=== PATIENT | female | born 1950 | race Caucasian/White ===

== ENCOUNTER 2018-11-15 23:11 | Inpatient (IN) | payer MEDICARE, BC ==
[~2018-11-15] VITALS: Ht 162.6 cm; Wt 77.1 kg
--- NOTE | 2018-11-15 23:29 | NUR ---
PATIENT AMBULATORY TO ROOM 9. UNDRESSED INTO A GOWN. PATIENT INSTRUCTED TO REFRAIN FROM USING HER HEAVY ROBE OR QUILT TO COVER UP WITH DUE TO FEVER. VERBALIZES UNDERSTANDING.
[2018-11-15] MEDS ORDERED: PROAIR HFA108 MCG/AC IN (23:34)
[2018-11-15] MEDS ORDERED: VITAMIN D2000 UNI2 PO (23:35)
[2018-11-16 00:17] LABS: HEMATOCRIT 42.8 % (37.0-47.0); HEMOGLOBIN 14.1 g/dl (12.0-16.0); IMMATURE GRANULOCYTES 0.3 % (0.0-5.0); MEAN CELL VOLUME 91.1 fL CALC (80.0-100.0); MEAN CORPUSCULAR HGB CONC 32.9 g/L CALC (32.0-36.0); NEUT# 9.38 thou/uL (2.00-7.15); RED BLOOD COUNT 4.7 mill/uL (4.20-5.60)
[2018-11-16 00:42] LABS: ALBUMIN 4.5 g/dL (3.2-5.0); BILIRUBIN, TOTAL 0.6 mg/dL (0.0-1.4); CREATININE 1.3 mg/dL (0.5-1.0); POTASSIUM 4.1 mmol/l (3.5-5.1); TOTAL PROTEIN 7.4 g/dL (6.3-8.2)
[2018-11-16] MEDS ORDERED: PRAVASTATIN SOD20 MG PO (00:59)
[2018-11-16] MEDS ORDERED: MONTELUKAST SOD10 MG PO (00:59)
[2018-11-16] MEDS ORDERED: LEVOTHYROXIN50 MC1 PO (00:59)
--- NOTE | 2018-11-16 01:05 | NUR ---
DISCUSSED WITH DR DEAL REGARDING DECREASING SAO2. ORDERS RECEIVED.
--- NOTE | 2018-11-16 01:31 | NUR ---
RESTING QUIETLY AWAITING DISPOSITION.
--- NOTE | 2018-11-16 02:00 | NUR ---
DR DEAL DISCUSSED ADMISSION WITH PT.
[2018-11-16 02:27] LABS: MYOGLOBIN 64 ng/mL (0 - 62)
--- NOTE | 2018-11-16 02:28 | NUR ---
Admission Note Report Given to: JOCE HAYNES Transported by: Wheelchair X Stretcher Transported with: X Nurse Transporter X Patent IV X O2 X Supervisor Silvering Department
[2018-11-16 02:36] VITALS: BP 104/68
--- NOTE | 2018-11-16 02:36 | NUR ---
68 yr old white female adm to icu8 per stretcher as medsurg tele overflow. transferred self to bed. bed weight obtained. case monitor shows sinus rhythm. #20 lac ns bolus infusing. history obtained per pt & er record. oriented to room. fall precautions initiated.
[2018-11-16 07:00] VITALS: BP 104/55
--- NOTE | 2018-11-16 08:00 | NUR ---
PT RESTING IN BED WITH O2 ON VIA NC, SATS MAINTAINED PT HAS OCCASIONAL COUGH PHOTOVOLTAIC PANEL INSTALLER AT THIS TIME, AWARE OF NEED FOR SPECIMEN IF ABLE, AM ASSESSMENT COMPLETED SEE INTERVENTIONS, IV ACCESS INTACT SALINE LOCKED, TELE READING SR RATE IN THE 70'S BP STABLE PT AFEBRILE THIS AM, OFFERS NO NEW COMPLAINTS, CALL KELLY WITHIN REACH, WILL CONTINUE TO MONITOR
[2018-11-16 09:44] LABS: URINE BILIRUBIN - DIPSTICK NEGATIVE (NEGATIVE); URINE BLOOD DIPSTICK NEGATIVE (NEGATIVE); URINE COLOR YELLOW; URINE GLUCOSE - DIPSTICK NEGATIVE (NEGATIVE); URINE KETONE TRACE mg/dL (NEGATIVE); URINE LEUK ESTERASE NEGATIVE (NEGATIVE); URINE NITRITE - DIPSTICK NEGATIVE (Negative); URINE PROTEIN - DIPSTICK NEGATIVE (NEG-TRACE); URINE UROBILINOGEN - DIPSTICK 0.2 E.U./dL (0.2)
--- NOTE | 2018-11-16 10:58 | NUR ---
PT RESTING IN BED, ALERT AND ORIENTED, REMAINS ON NC, OFFERS NO COMPLAINTS, CALL KELLY WITHIN REACH, WILL CONTINUE TO MONITOR.
--- NOTE | 2018-11-16 12:36 | NUR ---
INTO SEE PATIENT PLAN OIF CARE DISCUSSED INCLUDING STEROIDS, ABT OXYGEN AND LENGTH OF STAY, ALL QUESTIONS ANSWERED, PT DENIES ANY COMPLAINTS, WILL CONTINUE TO MONITOR, VISITOR REMAINS AT BEDSIDE.
--- NOTE | 2018-11-16 12:59 | NUR ---
PT OOB OT BSC, CONTINENT OF SMALL AMOUNT CLEAR YELLOW URINE SELF [facility] CARE PROVIDED, TO CT VIA BOYD.
[2018-11-16 13:00] VITALS: BP 123/54
--- NOTE | 2018-11-16 13:20 | NUR ---
BACK FROM CT. BACKL TP BED ALL MOPNITORING EQUIPMENT BACK ON PATIENT, SPUTUM SPECIMEN OBTAINED, SMALL AMOUNT THICK YELLOW SPUTUM, SENT FOR CULTURE
--- NOTE | 2018-11-16 14:32 | NUR ---
PT DOZING, OFFERS NO NEW COMPLAINTS, VS STABLE AND TELE REDAING SR RATE IN THE 70'S, WILL CONTINUE TO MONITOR.
[2018-11-16 15:00] VITALS: BP 113/54
[2018-11-16 16:00] VITALS: BP 125/61
--- NOTE | 2018-11-16 16:41 | NUR ---
PT RESTING SPOUSE AT BEDSIDE, OFFERS NO NEW COMPLAINTS, CALL KELLY WITHIN REACH
--- NOTE | 2018-11-16 17:56 | NUR ---
SET UP ASSIST PROVIDED FOR PM MEAL, SPOUSE REMAINS AT BEDSIDE
[2018-11-16 20:10] VITALS: BP 112/60
--- NOTE | 2018-11-16 20:10 | NUR ---
awake. watching tv. denies resp diff. coarse breath sounds bilat. o2 cont per nc. awake overnight monitor shows sinus rhythm. #20 lac saline lock. po fluids taken well. voids per bsc. fall precautions cont.
[2018-11-17 00:01] VITALS: BP 115/57
--- NOTE | 2018-11-17 00:01 | NUR ---
eyes closed. no resp diff. quality assurance monitor chassis shows sinus stan.
[2018-11-17 04:00] VITALS: BP 117/63
--- NOTE | 2018-11-17 05:10 | NUR ---
lab here. blood ddrawn.
[2018-11-17 05:28] LABS: IMMATURE GRANULOCYTES 0.7 % (0.0-5.0); MEAN CELL VOLUME 91.9 fL CALC (80.0-100.0); MEAN CORPUSCULAR HGB 30.4 pG CALC (26.0-32.0); MEAN CORPUSCULAR HGB CONC 33.1 g/L CALC (32.0-36.0); NEUT# 13.87 thou/uL (2.00-7.15); RED BLOOD COUNT 3.95 mill/uL (4.20-5.60); RED CELL DISTRI WIDTH 14.4 % (11.5-15.5)
[2018-11-17 05:33] LABS: HEMATOCRIT 36.3 % (37.0-47.0)
[2018-11-17 05:53] LABS: ALKALINE PHOSPHATASE 44 u/l (38-126); ANION GAP 10 (6-22 (CALC)); BILIRUBIN, TOTAL 0.3 mg/dL (0.0-1.4); BUN 15 mg/dL (8-23); BUN/CREATININE RATIO 26 (12-20 (CALC)); CARBON DIOXIDE 24 mmol/l (22-30); CHLORIDE 111 mmol/l (95-108); CREATININE 0.6 mg/dL (0.5-1.0); GFR > 60 ML/MIN (>=60 (CALC)); GFR FOR AFR.AMER. > 60 ML/MIN (>=60 (CALC)); LIPASE 16 u/l (23-300); MAGNESIUM 2.1 mg/dL (1.6-2.3); SGOT/AST 15 u/l (9-36); SODIUM 142 mmol/l (137-146)
[2018-11-17 05:58] LABS: ALBUMIN 3.3 g/dL (3.2-5.0); AMYLASE < 30 u/l (30-110); TOTAL PROTEIN 5.9 g/dL (6.3-8.2)
--- NOTE | 2018-11-17 07:20 | NUR ---
PT RESTING IN BED WITH O2 ON VIA NC, SATS MAINTAINED PT HAS OCCASIONAL COUGH ELECTRONIC HEALTH RECORDS SPECIALIST AT THIS TIME, SPECIMEN SENT YESTERDAY, AM ASSESSMENT COMPLETED SEE INTERVENTIONS, IV ACCESS INTACT SALINE LOCKED, TELE READING SR RATE IN THE 70'S BP STABLE PT AFEBRILE THIS AM, OFFERS NO NEW COMPLAINTS, CALL KELLY WITHIN REACH, WILL CONTINUE TO MONITOR
--- NOTE | 2018-11-17 07:45 | NUR ---
SET UP ASSIST PROVIDED FOR AM MEAL, CALL KELLY WITHIN REACH, WILL CONTINUE TO MONITOR.
[2018-11-17 08:00] VITALS: BP 133/63
--- NOTE | 2018-11-17 10:35 | NUR ---
PT RESTING IN BED, DOZES INTERMITTENLY, DENIES PAIN OR DISCOMFORT, CALL KELLY WITHIN REACH.
--- NOTE | 2018-11-17 11:14 | NUR ---
IN TO SEE PT, PLAN OF CARE DISCUSSED
[2018-11-17 12:00] VITALS: BP 119/54
--- NOTE | 2018-11-17 14:13 | NUR ---
PT OOB TO CHAIR AT BEDSIDE INTERMITTENLY, OFFERS NO COMPLAINTS OF PAIN OR DICSOMFORT, CALL KELLY WITHIN REACH
--- NOTE | 2018-11-17 17:35 | NUR ---
SET UP ASSIST PROVIDED FOR PM MEAL, SPOUSE AT BEDSIDE, PT REMAINS SITTING UP IN CHAIR AT BEDSIDE
--- NOTE | 2018-11-17 18:50 | NUR ---
REPORT FROM JOCE SOLOMON. ASSUMED PT. CARE.
--- NOTE | 2018-11-17 19:20 | NUR ---
PT. FOUND SITTING IN CHAIR AT BEDSIDE. AWAKE, ALERT, ORIENTED X 3. SKIN WARM AND DRY. VIVIENNE. RESPS EVEN AND UNLABORED. SPO2 STABLE ON 2L NC. HR/BP STABLE. AFEBRILE. COARSE LUNG SOUNDS NOTED ESPECIALLY TO RT. SIDE. SLIGHT COARSENESS TO LT. UPPER, DIMINISHED LT. BASE. INTERMITTENT HARSH COUGH NOTED WITH REPORTED YELLOW SPUTUM PRODUCTION. BOWEL SOUNDS PRESENT. NO SWELLING NOTED. DISTIL PULSES INTACT. DENIES COMPLAINTS OF PAIN OR NEED. WILL CONTINUE TO MONITOR.
[2018-11-17 20:21] VITALS: BP 127/61
--- NOTE | 2018-11-17 21:20 | NUR ---
PT. REMAINS AWAKE, ALERT, STABLE. NO DISTRESS. SPEAKS IN FULL SENTENCES. ZITHROMAX INFUSING WITHOUT REACTIONS.
--- NOTE | 2018-11-17 22:15 | NUR ---
PT. C/O BURNING AT IV SITE. IV CONTIUES TO FLUSH EASILY WITHOUT REDNESS OR SWELLING NOTED. COLD COMPRESS APPLIED AT THIS TIME AND PT. STATES DISCOMFORT IS IMPROVED. WILL CONTINUE TO ASSESS.
--- NOTE | 2018-11-17 22:58 | NUR ---
ANTIBIOTICS COMPLETE AT THIS TIME. SOLUMEDROL GIVEN ORDERED. ICE PACK REAPPLIED AT THIS TIME. PT. STATES DISCOMFORT IS BETTER WITH ICE PACK. SITE APPEARS PATENT, AND FLUSHES EASILY WITHOUT ANY SWELLING.
[2018-11-18] VITALS: BP 104/50
--- NOTE | 2018-11-18 01:10 | NUR ---
PT. RESTING IN BED IN NO DISTRESS. CONTINUES WITH INTERMITTENT COUGHING EPISODES. REMAINS STABLE AT THIS TIME. CALL LIGHT REMAINS WITHIN REACH. WILL CONTINUE TO MONITOR.
[2018-11-18 04:00] VITALS: BP 122/57
--- NOTE | 2018-11-18 04:30 | NUR ---
NEW IV PLACED PREVIOUS IV TO LT. AC WAS CAUSING THE PATIENT DISCOMFORT. LABS OBTAINED AT THIS TIME. REMITTED TO LAB PERSONNEL. PT. DENIES COMPLAINTS OF PAIN OR NEED AT THIS TIME. WILL CONTINUE TO MONITOR.
[2018-11-18 04:54] LABS: HEMATOCRIT 36.6 % (37.0-47.0); HEMOGLOBIN 11.9 g/dl (12.0-16.0); IMMATURE GRANULOCYTES 0.7 % (0.0-5.0); MEAN CELL VOLUME 92.7 fL CALC (80.0-100.0); MEAN CORPUSCULAR HGB 30.1 pG CALC (26.0-32.0); MEAN CORPUSCULAR HGB CONC 32.5 g/L CALC (32.0-36.0); NEUT# 12.79 thou/uL (2.00-7.15); RED BLOOD COUNT 3.95 mill/uL (4.20-5.60); RED CELL DISTRI WIDTH 14.8 % (11.5-15.5)
--- NOTE | 2018-11-18 04:58 | NUR ---
NEB TREATMENT IN PROGRESS AT THIS TIME.
[2018-11-18 05:05] LABS: ALBUMIN 3.4 g/dL (3.2-5.0); ALKALINE PHOSPHATASE 51 u/l (38-126); ANION GAP 11 (6-22 (CALC)); BILIRUBIN, TOTAL 0.3 mg/dL (0.0-1.4); BUN 24 mg/dL (8-23); BUN/CREATININE RATIO 32 (12-20 (CALC)); CARBON DIOXIDE 24 mmol/l (22-30); CHLORIDE 111 mmol/l (95-108); CREATININE 0.8 mg/dL (0.5-1.0); GFR > 60 ML/MIN (>=60 (CALC)); GFR FOR AFR.AMER. > 60 ML/MIN (>=60 (CALC)); MAGNESIUM 2.2 mg/dL (1.6-2.3); POTASSIUM 4.1 mmol/l (3.5-5.1); SGOT/AST 14 u/l (9-36); SODIUM 141 mmol/l (137-146); TOTAL PROTEIN 6.1 g/dL (6.3-8.2)
--- NOTE | 2018-11-18 06:15 | NUR ---
PT. MEDICATED PER PHYSICIAN ORDERS. EASILY AROUSABLE TO LIGHT VERBAL STIMULI. DENIES OTHER COMPLAINTS OR NEEDS. UPDATED ON AM LAB RESULTS. WILL CONTINUE TO MONITOR.
[2018-11-18 07:00] VITALS: BP 140/66
--- NOTE | 2018-11-18 07:30 | NUR ---
PT SITTING UP ON EDGE OF BED WITH O2 ON VIA NC, SATS MAINTAINED WITH NC AT 2L. PT HAS OCCASIONAL COUGH AURIST AT THIS TIME, PT STATES IT IS OCCASIONALLY PRODUCTIVE BUT NOT MUCH SHE FEELS LIKE IT SHOULD BE. SPUTUM SPECIMEN SENT PREVIOUSLY, AM ASSESSMENT COMPLETED SEE INTERVENTIONS, IV ACCESS INTACT SALINE LOCKED, TELE READING SR RATE IN THE 70'S BP STABLE PT AFEBRILE THIS AM, PT HOPING TO HAVE TELEMETRY D/C'D IN ORDER TO FACILITATE EASIER AMBULATION AROUND UNIT, AWAITING DR.ZELDEON CAST. OTHERWISE OFFERS NO NEW COMPLAINTS, CALL KELLY WITHIN REACH, WILL CONTINUE TO MONITOR
--- NOTE | 2018-11-18 08:16 | NUR ---
OK TO D/C TELE P[ER VERBAL ORDER , PT IN BATHROOM FOR AM ADL CARE AND LINENS CHANGED BY STAFF. PT AMBULATES WITH STRONG STEADY GAIT, CALL BEL WITHIN REACH,
--- NOTE | 2018-11-18 09:31 | NUR ---
PT TOLERATING NEB TREAMTENT, AMBULATES IN ROOM WITH STEADY GAIT WITH MONITROING EQUIPMENT OFF (PT MED SURG TELE OVERFLOE) WITH VERBAL ORDERED EARLIER TO D/C TELE. OFFERS NO COMPLAINTS, CALL KELLY WITHIN REACH
--- NOTE | 2018-11-18 10:21 | NUR ---
PT REMAINS SIITING UP IN CHAIR AT BEDSIDE, OFFERS NO NEW COMPLAINTS, TOLERATED AM MEAL WELL WILL CONTINUE TO MONITOR
--- NOTE | 2018-11-18 11:35 | NUR ---
PT SITTING UP IN CHAIR AT BEDSIDE, OFFERS NO COMPLAINTS, SET UP ASSIST PROVIDED FOR AFTERNOON MEAL, WILL CONTINUE TO MONITOR.
[2018-11-18] MEDS ORDERED: MEDDOSEPAK PO (12:06)
[2018-11-18] MEDS ORDERED: AZITHROMYCIN500 MG PO (12:06)
--- NOTE | 2018-11-18 12:24 | NUR ---
IN TO SEE PATIENT, PLAN OF CARE DISCUSSED INCLUDING DISCHARGE TODAY TO HOME.
--- NOTE | 2018-11-18 12:55 | NUR ---
PT SITTING UP AT BEDSIDE DRESSED, IV ACCESS REMOVED INTACT EARLIER FOR PLANNED DISCHARGE HOME. Discharge instructions given. Patient verbalizes understanding of same. Discharged in stable condition via Wheelchair to Home with spouse. All belongings sent with pt. SCRIPTS FOR PREDNISONE AND ABT GIVEN TO PATIENT.
== END 2018-11-18 12:55 | disposition home or self-care (01) | DRG 194 ==
LOC: ED 23:11 → ED-I 11-16 01:37 → ED 11-16 02:00 → ICU 11-16 02:01
PROVIDERS: Emergency Medicine; ADMIT Internal Medicine Nephrology; ATTEND Internal Medicine Nephrology
DX: J18.9 Pneumonia, unspecified organism (principal); J47.1 Bronchiectasis with (acute) exacerbation; J47.0 Bronchiectasis with acute lower respiratory infection; I10 Essential (primary) hypertension; E78.5 Hyperlipidemia, unspecified; F41.9 Anxiety disorder, unspecified; F32.9 Major depressive disorder, single episode, unspecified; R09.02 Hypoxemia; E03.9 Hypothyroidism, unspecified; Z90.2 Acquired absence of lung [part of]